=== PATIENT | male | born 1960 | race Caucasian/White ===

== ENCOUNTER 2019-09-22 16:42 | Outpatient (CLI) | payer OTHER | END 2019-09-22 16:43 | disposition critical access hospital (66) | LOC: EMS 16:42 | PROVIDERS: ATTEND Surgery | DX: R41.0 Disorientation, unspecified (principal); R53.1 Weakness; R47.81 Slurred speech; R04.0 Epistaxis; W18.30XA Fall on same level, unspecified, initial encounter; Y92.031 Bathroom in apartment as the place of occurrence of the external cause | CPT/HCPCS: A0425; A0427 ==

== ENCOUNTER 2019-09-22 16:57 | Emergency (ER) | payer BC, OTHER ==
--- NOTE | 2019-09-22 17:05 | ED Physician Documentation ---
PD HPI FOCAL NEURO - Stated complaint Stated Complaint: POSS STROKE - History obtained from History obtained from: Patient, Family (son), EMS - History of Present Illness Timing - onset: Today (58-year-old gentleman who abruptly at 4 PM became altered and listing to the left. No trauma but had a bloody nose. Reportedly was on some sort of blood thinner, we do not know what and stopped it 3 days ago for reasons unknown.) Timing - details: Abrupt onset Baseline status: positive: A&OX3, ambulatory, indep Review of Systems Ten Systems: 10 systems reviewed and negative Constitutional: denies: Fever Ears: denies: Loss of hearing, Ear pain Throat: denies: Dental pain / toothache, Sore throat Cardiac: denies: Chest pain / pressure, Palpitations Respiratory: denies: Dyspnea, Cough GI: denies: Abdominal Pain, Nausea, Vomiting PD PAST MEDICAL HISTORY - Allergies Allergies/Adverse Reactions: Allergies Allergy/AdvReac Type Severity Reaction Status Date / Time No Known Drug Allergies Allergy Verified 09/22/19 17:04 PD ED PE NORMAL - Vitals Vital signs reviewed: Yes - General General: Alert and oriented X 3, Other (He is alert and oriented but slow slurred speech, cooperative, slightly confused. Also a little bit tangential.) - HEENT HEENT: PERRL, Other (Bloodshot eyes with lateral nystagmus) - Neck Neck: Supple, no meningeal sign, No bony TTP - Cardiac Cardiac: RRR, No murmur - Respiratory Respiratory: No respiratory distress, Clear bilaterally - Abdomen Abdomen: Normal bowel sounds, Soft, Non tender - Back Back: No CVA TTP, No spinal TTP - Neuro Neuro: Alert and oriented X 3, No motor deficit, No sensory deficit, Normal speech (Slight ataxia with ucxsnw-[id number] testing bilaterally, be left worse than right.) Eye Opening: Spontaneous Motor: Obeys Commands NIHSS - Time Time: 17:01 - Level of Consciousness Level of consciousness: (0) Alert, Keenly responsive LOC Questions: (0) Answers both Q's correct LOC Commands: (0) Performs both correctly - Gaze Best Gaze: (0) Normal - Visual Visual: (0) No loss - Facial Palsy Facial Palsy: (0) Normal, symmetrical movement - Motor Arms (both separate) Motor Arm (right): (0) No drift Motor Arm (left): (0) No drift - Motor Legs (both separate) Motor Leg (right): (0) No drift Motor Leg (left): (0) No drift - Limb Ataxia Limb Ataxia: (2) Present in 2 limbs - Sensory Sensory: (0) Normal - Best Language Best Language: (0) No aphasia - Dysarthria Dysarthria: (1) Wnyu-[id number] dysarthria - Extinction and Inattention (formally neg Extinction and inattention: (0) No abnormality - Total Score/Results Total Score/Result: 3 Results - Vitals Vitals: Vital Signs - 24 hr 09/22/19 09/22/19 09/22/19 16:57 17:30 18:11 Heart Rate 79 71 74 Respiratory 20 16 15 Rate Blood Pressure 200/113 H 243/136 H 176/107 H O2 Saturation 96 95 98 09/22/19 18:30 Heart Rate 89 Respiratory 22 Rate Blood Pressure 132/119 H O2 Saturation 97 Oxygen O2 Source Room air - EKG (time done) 1726 Rate: Rate (enter#) (79) Rhythm: NSR [place]: Normal, LAD Intervals: Normal NM QRS: Normal Ischemia: Non specific changes Computer interpretation: Agree with computer - Labs Labs: Laboratory Tests 09/22/19 09/22/19 09/22/19 17:05 17:05 17:05 WBC 8.4 RBC 4.55 L Hgb 15.2 Hct 45.2 MCV 99.3 H MCH 33.4 H MCHC 33.6 RDW 12.9 Plt Count 221 MPV 9.4 Neut # (Auto) 5.3 Lymph # (Auto) 2.0 [place] # (Auto) 0.9 Eos # (Auto) 0.1 Baso # (Auto) 0.1 Absolute Nucleated RBC 0.00 Nucleated RBC % 0.0 Sodium 137 Potassium 2.9 L Chloride 98 L Carbon Dioxide 27 Anion Gap 12.0 BUN 10 Creatinine 0.9 Estimated GFR (MDRD) 87 L Glucose 108 H Calcium 8.3 L Total Bilirubin 0.8 AST 31 ALT 25 Alkaline Phosphatase 80 CK-MB (CK-2) 5.2 Total Protein 7.2 Albumin 4.0 Globulin 3.2 Albumin/Globulin Ratio 1.3 Lipase 33 Ethyl Alcohol 331.4 - Rads (name of study) CT Head/CTA Head/neck Radiology: EMP read contemporaneously (NAD) PD MEDICAL DECISION MAKING - ED course ED course: 58-year-old gentleman presents as a stroke alert with listing to the left and ataxia. Examination was more consistent with and laboratory testing proved alcohol delirium as opposed to stroke. He was allowed to sober up and his supportive family was at the bedside. He was counseled to quit drinking. Ambulatory in the department without issue. Departure - Departure Disposition: 01 Home, Self Care Clinical Impression: Stroke-like symptom, Alcohol intoxication delirium Altered mental status Qualifiers: Altered mental status type: delirium Qualified Code(s): R41.0 - Disorientation, unspecified Condition: Good Record reviewed to determine appropriate education?: Yes Instructions: ED Alcohol Intoxication Comments: Thankfully there was no evidence of you having a stroke tonight, just drunk. Please refrain from alcohol and follow-up with your primary care physician.
[2019-09-22 17:15] LABS: BASOPHILS # (AUTO) 0.1 10^3/uL (0.0-0.1); BASOPHILS % (AUTO) 0.7 %; EOSINOPHILS # (AUTO) 0.1 10^3/uL (0.0-0.7); EOSINOPHILS % (AUTO) 1.2 %; HGB - HEMOGLOBIN 15.2 g/dL (14.0-18.0); LYMPHOCYTES % (AUTO) 23.7 %; MEAN CORPUSCULAR HEMOGLOBIN 33.4 pg (27.0-31.0); MEAN CORPUSCULAR HGB CONC 33.6 g/dL (32.0-36.0); MEAN CORPUSCULAR VOLUME 99.3 fL (80.0-94.0); MEAN PLATELET VOLUME 9.4 fL (7.4-11.4); MONOCYTES # (AUTO) 0.9 10^3/uL (0.0-1.0); MONOCYTES % (AUTO) 10.4 %; NEUTROPHILS # (AUTO) 5.3 10^3/uL (1.5-6.6); NEUTROPHILS % (AUTO) 63.6 %; PLT - PLATELET COUNT 221 10^3/uL (130-450); RED BLOOD COUNT 4.55 10^6/uL (4.70-6.10); RED CELL DISTRIBUTION WIDTH 12.9 % (12.0-15.0); WHITE BLOOD COUNT 8.4 x10^3/uL (4.8-10.8)
[2019-09-22 17:25] LABS: ALBUMIN/GLOBULIN RATIO 1.3 (1.0-2.2); BILIRUBIN,TOTAL 0.8 mg/dL (0.2-1.0); CALCIUM 8.3 mg/dL (8.5-10.3); CREATININE 0.9 mg/dL (0.6-1.2); TOTAL PROTEIN 7.2 g/dL (6.7-8.2)
[2019-09-22] MEDS ORDERED: IOVERSOL 320 100 ML VIAL IVP ONE ×2 (17:30→17:34)
--- NOTE | 2019-09-22 17:33 | CT Report ---
Reason: stroke symptoms Procedure Date: 09/22/2019 Accession Number: [id number] / [id number] Procedure: CT - HEAD WO CPT Code: Final Report FULL RESULT: EXAM: CT HEAD EXAM DATE: 09/22/2019 05:15 PM. CLINICAL HISTORY: Found down, slurred speech, on blood thinners COMPARISON: None. TECHNIQUE: Multiaxial CT images were obtained from the foramen magnum to the vertex. Reformats: Sagittal and coronal. IV contrast: None. In accordance with CT protocol optimization, one or more of the following dose reduction techniques were utilized for this exam: automated exposure control, adjustment of mA and/or KV based on patient size, or use of iterative reconstructive technique. FINDINGS: Parenchyma: No intraparenchymal hemorrhage. No evidence of mass, midline shift, or CT findings of infarction. Pizarro-white differentiation is distinct. Extraaxial Spaces: Mild to moderate volume loss No subdural or epidural hemorrhage. Ventricles: Normal in size and position. Sinuses and Orbits: Imaged paranasal sinuses, orbits, and mastoids show no significant abnormality. Bones: No evidence of fracture or calvarial defect. Other: None. IMPRESSION: No acute intracranial abnormality. RADIA The call report notification system was initiated by Dr. Gustavo Grigsby at 05:28 PM on 09/22/2019. The above call report findings were discussed with Darian Mccormick by Dr. Gustavo Grigsby at 05:32 PM on 09/22/2019.
--- NOTE | 2019-09-22 18:10 | CT Report ---
Reason: stroke symptoms Procedure Date: 09/22/2019 Accession Number: [id number] / [id number] Procedure: CT - ANGIO NECK W CPT Code: Final Report FULL RESULT: EXAM: CT ANGIOGRAM NECK EXAM DATE: 09/22/2019 05:22 PM. CLINICAL HISTORY: 58-year-old male, slurred speech Stroke symptoms. COMPARISON: CT head 09/22/2019 TECHNIQUE: Routine axial helical imaging was performed from the skull base through the aortic arch. Reconstructions: Routine multiplanar 3D MIP reconstructions. IV Contrast: OPTI 320 80ML. Evaluation of arterial stenosis is based on a NASCET method of measurement. In accordance with CT protocol optimization, one or more of the following dose reduction techniques were utilized for this exam: automated exposure control, adjustment of mA and/or KV based on patient size, or use of iterative reconstructive technique. FINDINGS: Right Carotid: The common carotid, internal carotid, and external carotid arteries are widely patent. No dissection, significant atherosclerotic plaque, or calcification identified. Left Carotid: The common carotid, internal carotid, and external carotid arteries are widely patent. No dissection, significant atherosclerotic plaque, or calcification identified. Vertebrals: The right vertebral artery is dominant. The vertebrobasilar system shows no stenoses. Intracranial Circulation: CTA head is dictated separately. Other: The visualized lung apices are clear. Moderate multilevel degenerative spondylosis of the visualized spine, no acute fracture or traumatic subluxation. Polypoid mucosal thickening of the maxillary sinuses bilaterally. The remaining paranasal sinuses are clear. The visualized soft tissues of the neck demonstrate no acute abnormality. IMPRESSION: 1. Unremarkable neck CT angiogram. No hemodynamically significant stenoses. 2. Concurrently obtained CTA head dictated separately. RADIA The critical test notification system was initiated by Dr. Paulo Rutherford at 05:59 PM on 09/22/2019. The above critical test findings were discussed with Darian Mccormick by Dr. Paulo Rutherford at 06:04 PM on 09/22/2019.
--- NOTE | 2019-09-22 18:13 | CT Report ---
Reason: stroke symptoms Procedure Date: 09/22/2019 Accession Number: [id number] / [id number] Procedure: CT - ANGIO HEAD W/WO CPT Code: Final Report FULL RESULT: EXAM: CT ANGIOGRAM HEAD. CT SCAN OF THE HEAD WITH CONTRAST. EXAM DATE: 09/22/2019 05:22 PM CLINICAL HISTORY: 58-year-old male with slurred speech. Stroke symptoms. COMPARISON: Noncontrast CT head obtained concurrently TECHNIQUE: - CT Scan Head: Using a multidetector scanner, axial images were acquired from the foramen magnum to the skull vertex following contrast administration. - CT Angiogram: Using a multidetector scanner, high-resolution axial images were acquired from the skull base through vertex following rapid infusion of intravenous contrast. Reformats: Multiplanar MIP reformats were reconstructed. NASCET criteria used for stenosis measurement. IV Contrast: OPTI 320 80ML. In accordance with CT protocol optimization, one or more of the following dose reduction techniques were utilized for this exam: automated exposure control, adjustment of mA and/or KV based on patient size, or use of iterative reconstructive technique. FINDINGS: NON-CONTRAST HEAD: Noncontrast CT head dictated separately. POST-CONTRAST HEAD: No abnormal enhancement. CT ANGIOGRAM HEAD: RIGHT: Internal Carotid artery: No evidence of dissection. No evidence of aneurysm along the intracranial ICA. Anterior Cerebral Artery: Patent without significant stenosis, aneurysm, or vascular malformation. Middle Cerebral Artery: Patent without significant stenosis, aneurysm, or vascular malformation. Posterior Cerebral Artery: origin. Patent without significant stenosis, aneurysm, or vascular malformation. Posterior Communicating Artery: Patent. No aneurysm. Vertebral Artery: Patent without significant stenosis. No evidence of dissection. LEFT: Internal Carotid artery: No evidence of dissection. No evidence of aneurysm along the intracranial ICA. Anterior Cerebral Artery: Patent without significant stenosis, aneurysm, or vascular malformation. Middle Cerebral Artery: Patent without significant stenosis, aneurysm, or vascular malformation. Posterior Cerebral Artery: Focal approximately 30% narrowing mid P2 segment left RHINOLOGIST. Posterior Communicating Artery: Patent. No aneurysm. Vertebral Artery: Patent without significant stenosis. No evidence of dissection. CENTRAL: Anterior Communicating Artery: Patent. No aneurysm. Basilar Artery: Patent without significant stenosis. No aneurysm. DURAL VENOUS SINUSES AND MAJOR CENTRAL VEINS: Patent. IMPRESSION: CT HEAD: 1. Noncontrast CT head dictated separately. 2. No abnormal enhancement on the postcontrast CT head. CTA HEAD: 1. No CTA evidence of high-grade stenosis, large vessel occlusion, acute dissection, aneurysm, or vascular malformation within intracranial arteries. 2. Focal approximately 30% narrowing mid P2 segment left RHINOLOGIST. RADIA The critical test notification system was initiated by Dr. Paulo Rutherford at 05:59 PM on 09/22/2019. The above critical test findings were discussed with Darian Mccormick by Dr. Paluo Rutherford at 06:04 PM on 09/22/2019.
[2019-09-22 18:38] VITALS: BP 132/119
== END 2019-09-22 19:20 | disposition home or self-care (01) ==
LOC: EDUNIT# → ED 16:57
DX: R27.0 Ataxia, unspecified (principal); R41.0 Disorientation, unspecified; F10.121 Alcohol abuse with intoxication delirium
CPT/HCPCS: 36415; 70496; 70498; 80053; 80320; 82553; 83690; 85025; 93005; 99284; Q9967; 70450

== ENCOUNTER 2021-04-18 11:01 | Outpatient (CLI) | payer SELFPAY ==
--- NOTE | 2021-04-18 12:34 | XRAY Report ---
PROCEDURE: Wrist 3 View RT INDICATIONS: Fall on outstretched hand TECHNIQUE: 3 views of the wrist were acquired. COMPARISON: None FINDINGS: Bones: No fractures or dislocations. No suspicious bony lesions. Soft tissues: Soft tissue swelling without radiopaque foreign body. IMPRESSION: Soft tissue swelling without fracture or foreign body Reviewed by: Glenn Conway MD on 04/18/2021 11:33 AM AKZOLTAN Approved by: Glenn Conway MD on 04/18/2021 11:33 AM AKDT Station ID: [id number]
== END 2021-04-18 23:59 | disposition home or self-care (01) ==
LOC: DI.N 11:01
PROVIDERS: ATTEND Physician Assistant Medical
DX: S62.91XA Unspecified fracture of right hand, initial encounter for closed fracture (principal); M79.89 Other specified soft tissue disorders

== ENCOUNTER 2021-04-20 09:58 | Outpatient (CLI) | payer SELFPAY ==
--- NOTE | 2021-04-20 16:53 | XRAY Report ---
PROCEDURE: Wrist 4 View RT INDICATIONS: R WRIST PX TECHNIQUE: 4 views of the wrist were acquired. COMPARISON: 04/18/2021. FINDINGS: Bones: Lucency noted in the distal radius concerning for nondisplaced fracture. Fracture lucency appe ars to extend into the radiocarpal joint. Scaphoid view: Scaphoid is intact. Soft tissues: No suspicious soft tissue calcifications. IMPRESSION: Possible nondisplaced, intra-articular distal radius fracture. Reviewed by: Ligia Boyer MD, PhD on 04/20/2021 4:51 PM PDT Approved by: Ligia Boyer MD, PhD on 04/20/2021 4:51 PM PDT Station ID: [id number]
== END 2021-04-20 23:59 | disposition home or self-care (01) ==
LOC: DI.N 09:58
PROVIDERS: ATTEND Family Medicine
DX: S62.91XA Unspecified fracture of right hand, initial encounter for closed fracture (principal); R93.6 Abnormal findings on diagnostic imaging of limbs

== ENCOUNTER 2021-05-12 08:15 | Outpatient (CLI) | payer SELFPAY ==
--- NOTE | 2021-05-12 08:40 | XRAY Report ---
PROCEDURE: Wrist 3 View RT INDICATIONS: FX OF DISTAL R RADIUS TECHNIQUE: 3 views of the wrist were acquired. COMPARISON: 04/20/2021 and 04/18/2021 FINDINGS: Bones: Right wrist is placed in a cast which obscures bony details. There is interval healing at dist al radial intra-articular fracture site with subtle increased sclerosis. No new fracture or dislocati on is seen. Wrist alignment is anatomic. Soft tissues: No suspicious soft tissue calcifications. IMPRESSION: Interval healing of distal radial intra-articular fracture site with stable anatomic wrist alignment. No new fracture or dislocation. Reviewed by: Reddy Garcia MD on 05/12/2021 8:38 AM PDT Approved by: Reddy Garcia MD on 05/12/2021 8:38 AM PDT Station ID: [id number]
== END 2021-05-12 23:59 | disposition home or self-care (01) ==
LOC: DI.N 08:15
PROVIDERS: ATTEND Physician Assistant
DX: S52.571D Other intraarticular fracture of lower end of right radius, subsequent encounter for closed fracture with routine healing (principal)

== ENCOUNTER 2021-06-02 15:35 | Outpatient (CLI) | payer SELFPAY ==
--- NOTE | 2021-06-02 16:23 | XRAY Report ---
PROCEDURE: Wrist 3 View RT INDICATIONS: OTHER FX OF LOWER END OF RIGHT RADIUS TECHNIQUE: 3 views of the wrist were acquired. COMPARISON: X-ray wrist 05/12/2021, 04/18/2021 FINDINGS: Bones: Overlying cast material obscures fine detail evaluation. There is continued interval healing of distal radial fracture with stable alignment. No suspicious bony lesions. Soft tissues: No suspicious soft tissue calcifications. IMPRESSION: Stable alignment of distal radial fracture. Reviewed by: Alpa Taylor MD on 06/02/2021 4:22 PM PDT Approved by: Alpa Taylor MD on 06/02/2021 4:22 PM PDT Station ID: [id number]
== END 2021-06-02 15:36 | disposition home or self-care (01) ==
LOC: DI.N 15:35
PROVIDERS: ATTEND Physician Assistant
DX: S52.591D Other fractures of lower end of right radius, subsequent encounter for closed fracture with routine healing (principal)

== ENCOUNTER 2021-06-13 14:00 | Outpatient (CLI) | payer OTHER ==
--- NOTE | 2021-06-13 16:39 | XRAY Report ---
PROCEDURE: Wrist 3 View RT INDICATIONS: FRACTURE OF LOWER END OF RIGHT RADIUS TECHNIQUE: 3 views of the wrist were acquired. COMPARISON: 06/02/2021 FINDINGS: Bones: Linear sclerosis through the distal radial metaphysis reflects healing fracture. Generalized d ecreased osseous mineralization present. No lytic or blastic lesion. Scaphoid view: Not obtained Soft tissues: No suspicious soft tissue calcifications. IMPRESSION: Healing distal radial fracture Reviewed by: Glenn Conway MD on 06/13/2021 3:38 PM KWADWO Approved by: Glenn Conway MD on 06/13/2021 3:38 PM AKZOLTAN Station ID: [id number]
== END 2021-06-13 14:01 ==
LOC: DI.N 14:00
PROVIDERS: ATTEND Physician Assistant
DX: S52.591D Other fractures of lower end of right radius, subsequent encounter for closed fracture with routine healing (principal)

== ENCOUNTER 2021-07-12 08:00 | Outpatient (CLI) | payer OTHER | END 2021-07-12 23:59 | LOC: LAB.N 08:00 | PROVIDERS: ATTEND Family Medicine | DX: R07.0 Pain in throat (principal); Z20.822 Contact with and (suspected) exposure to COVID-19 | CPT/HCPCS: 87070 ==

== ENCOUNTER 2021-08-12 08:12 | Outpatient (CLI) | payer OTHER | END 2021-08-12 23:59 | disposition home or self-care (01) | LOC: LAB.N 08:12 | PROVIDERS: ATTEND Family Medicine | DX: K30 Functional dyspepsia (principal); Z20.822 Contact with and (suspected) exposure to COVID-19 | CPT/HCPCS: 87275; 87276 ==

== ENCOUNTER 2023-02-11 10:23 | Outpatient (CLI) | payer OTHER | END 2023-02-11 23:59 | disposition critical access hospital (66) | LOC: EMS 10:23 | DX: S00.03XA Contusion of scalp, initial encounter (principal); S40.812A Abrasion of left upper arm, initial encounter; S80.02XA Contusion of left knee, initial encounter; W18.30XA Fall on same level, unspecified, initial encounter; Y92.009 Unspecified place in unspecified non-institutional (private) residence as the place of occurrence of the external cause; R29.6 Repeated falls; F10.10 Alcohol abuse, uncomplicated | CPT/HCPCS: A0425; A0429 ==

== ENCOUNTER 2023-02-11 10:45 | Emergency (ER) | payer OTHER ==
--- NOTE | 2023-02-11 11:48 | ED Physician Documentation ---
History of Present Illness - Stated complaint Stated Complaint: ETOH/GLF - Chief complaint Chief Complaint: General - History obtained from History obtained from: Patient, Family, EMS - History of Present Illness Timing: Today Pain level max: 0 Pain level now: 0 - Additonal information Additional information: Patient is a 62-year-old male who presents to the emergency department after drinking several "small" bottles of wine today. He fell outside on the pavement and his family was unable to pick him up. He had a hematoma to the forehead. He does not take any blood thinners but is on blood pressure medication. Patient denies any pain. No vomiting. Patient states he usually drinks 4-5 small bottles of wine per day. Denies any abdominal pain, vomiting, diarrhea. No blood in the stool. No loss of consciousness that his family is aware of. No seizure activity. Nothing makes it better or worse. Review of Systems Constitutional: denies: Fever, Chills Ears: denies: Ear pain Nose: denies: Rhinorrhea / runny nose, Congestion Throat: denies: Sore throat Cardiac: denies: Palpitations Respiratory: denies: Dyspnea, Cough GI: denies: Abdominal Pain, Nausea, Vomiting, Diarrhea, Hematemesis, Bloody / black stool : denies: Dysuria, Frequency, Hesitancy Skin: denies: Rash Musculoskeletal: denies: Neck pain, Back pain Neurologic: denies: Headache PD PAST MEDICAL HISTORY - Past Medical History Past Medical History: Yes Cardiovascular: Hypertension - Allergies Allergies/Adverse Reactions: Allergies Allergy/AdvReac Type Severity Reaction Status Date / Time No Known Drug Allergies Allergy Verified 02/11/23 11:03 - Living Situation Living Situation: reports: With family Living Arrangement: reports: At home - Social History Does the pt drink ETOH?: Yes ETOH Use: Wine - Family History Family history: reports: Non contributory PD ED PE NORMAL - Vitals Vital signs reviewed: Yes - General General: Alert and oriented X 3, No acute distress, Well developed/nourished, Other (Intoxicated) - HEENT HEENT: PERRL, Other (Lio nose, slurred speech) - Neck Neck: Supple, no meningeal sign - Cardiac Cardiac: RRR, Strong equal pulses - Respiratory Respiratory: No respiratory distress, Clear bilaterally - Abdomen Abdomen: Soft, Non tender, Non distended - Derm Derm: Warm and dry - Extremities Extremities: No edema, No calf tenderness / cord - Neuro Neuro: Alert and oriented X 3 - Psych Psych: Normal mood, Normal affect Results - Vitals Vitals: Vital Signs - 24 hr 02/11/23 02/11/23 10:56 13:03 Temperature 37.1 C Heart Rate 72 80 Respiratory 16 18 Rate Blood Pressure 185/94 H 151/84 H O2 Saturation 98 98 Oxygen O2 Source Room air - Labs Labs: Laboratory Tests 02/11/23 02/11/23 02/11/23 11:47 11:47 11:47 WBC 11.6 H RBC 4.64 L Hgb 15.4 Hct 46.4 MCV 100.0 H MCH 33.2 H MCHC 33.2 RDW 13.1 Plt Count 240 MPV 9.6 Neut # (Auto) 8.5 H Lymph # (Auto) 2.1 [place] # (Auto) 0.9 Eos # (Auto) 0.0 Baso # (Auto) 0.1 Absolute Nucleated RBC 0.00 Nucleated RBC % 0.0 PT INR APTT Sodium 143 Potassium 4.0 Chloride 108 Carbon Dioxide 28 Anion Gap 7.0 BUN 8 Creatinine 0.7 Estimated GFR (MDRD) 115 Glucose 114 H Calcium 8.4 L Magnesium 1.8 Total Bilirubin 0.3 AST 32 ALT 25 Alkaline Phosphatase 90 Total Creatine Kinase 148 Total Protein 7.4 Albumin 3.8 Globulin 3.6 Albumin/Globulin Ratio 1.1 Lipase 32 TSH 0.90 Urine Color Urine Clarity Urine pH Ur Specific [place] Urine Protein Urine Glucose (UA) Urine Ketones Urine Occult Blood Urine Nitrite Urine Bilirubin Urine Urobilinogen Ur Leukocyte Esterase Ur Microscopic Review Urine Culture Comments Salicylates < 6.0 Urine Opiates Screen Ur Oxycodone Screen Urine Methadone Screen Ur Propoxyphene Screen Acetaminophen < 10 L Ur Barbiturates Screen Ur Tricyclics Screen Ur Phencyclidine Scrn Ur Amphetamine Screen U Methamphetamines Scrn U Benzodiazepines Scrn Urine Cocaine Screen U Cannabinoids Screen Ethyl Alcohol 367.6 02/11/23 02/11/23 11:47 11:47 WBC RBC Hgb Hct MCV MCH MCHC RDW Plt Count MPV Neut # (Auto) Lymph # (Auto) [place] # (Auto) Eos # (Auto) Baso # (Auto) Absolute Nucleated RBC Nucleated RBC % PT 10.7 INR 0.9 APTT 27.5 Sodium Potassium Chloride Carbon Dioxide Anion Gap BUN Creatinine Estimated GFR (MDRD) Glucose Calcium Magnesium Total Bilirubin AST ALT Alkaline Phosphatase Total Creatine Kinase Total Protein Albumin Globulin Albumin/Globulin Ratio Lipase TSH Urine Color YELLOW Urine Clarity CLEAR Urine pH 5.5 Ur Specific [place] <=1.005 Urine Protein NEGATIVE Urine Glucose (UA) NEGATIVE Urine Ketones NEGATIVE Urine Occult Blood NEGATIVE Urine Nitrite NEGATIVE Urine Bilirubin NEGATIVE Urine Urobilinogen 0.2 (NORMAL) Ur Leukocyte Esterase NEGATIVE Ur Microscopic Review NOT INDICATED Urine Culture Comments NOT INDICATED Salicylates Urine Opiates Screen NEGATIVE Ur Oxycodone Screen NEGATIVE Urine Methadone Screen NEGATIVE Ur Propoxyphene Screen NEGATIVE Acetaminophen Ur Barbiturates Screen NEGATIVE Ur Tricyclics Screen NEGATIVE Ur Phencyclidine Scrn NEGATIVE Ur Amphetamine Screen NEGATIVE U Methamphetamines Scrn NEGATIVE U Benzodiazepines Scrn NEGATIVE Urine Cocaine Screen NEGATIVE U Cannabinoids Screen NEGATIVE Ethyl Alcohol PD Medical Decision Making - ED course Complexity details: reviewed results, re-evaluated patient, considered differential, d/w patient, d/w family, d/w building energy consultant ED course: Patient adamantly refuses a cervical collar. He rips the cervical collar off whenever applied. Patient with a subarachnoid hemorrhage on CT scan. No acute findings on cervical spine CT. Discussed the case with the TACS surgeon at [facility] in [place] who recommends transfer to the emergency department. I spoke with Dr. Satnam Alves, Emergency Department physician who graciously accepts in transfer. Patient was given a dose of Haldol here for agitation. Patient will be transferred for further care. He is not on blood thinners. Patient is a GCS 14 secondary to alcohol intoxication. Otherwise he is neurologically intact. COBRA forms completed Patient was given Haldol IV for acute agitation This document was made in part using voice recognition software. While efforts are made to proofread this document, sound alike and grammatical errors may occur. PROCEDURE: CT brain without contrast INDICATIONS: fall, head/neck pain, +etoh TECHNIQUE: Noncontrast 4.5 mm thick angled axial sections acquired from the foramen magnum to the vertex. For radiation dose reduction, the following was used: automated exposure control, adjustment of mA and/or kV according to patient size. COMPARISON: None. FINDINGS: Image quality: Excellent. CSF spaces: Basal cisterns are patent. No extra-axial fluid collections. Ventricles are normal in size and shape. Brain: No midline shift. Subarachnoid hemorrhage is noted in the right sylvian cistern posteriorly. No evidence of parenchymal hemorrhage Pizarro-white matter interface is normal. Skull and face: Calvarium and visualized facial bones are intact, without suspicious lesions. Sinuses: Visualized sinuses and mastoids are clear. IMPRESSION: 1. Small volume subarachnoid hemorrhage noted in the right sylvian cistern. No evidence of parenchymal hemorrhage or mass effect PROCEDURE: CT cervical spine without contrast INDICATIONS: fall, head/neck pain, +etoh TECHNIQUE: Noncontrast 3 mm thick sections acquired from the skull base to the T4 level. Sagittal and coronal reformats were then constructed. For radiation dose reduction, the following was used: automated exposure control, adjustment of mA and/or kV according to patient size. COMPARISON: None. FINDINGS: Image quality: Excellent. Bones: No fractures or dislocations. Visualized superior ribs are intact. Multilevel degenerative disc disease and arthropathy in the cervical spine. Moderate central stenosis C5-6 and C6-7 Soft tissues: Prevertebral soft tissues are normal in thickness. No paravertebral hematomas. No apical pneumothoraces. IMPRESSION: 1. Degenerative disc disease and arthropathy associated with moderate central stenosis at C5-6 and C6-7. 2. No acute fracture or malalignment. Departure - Departure Disposition: 02 Transfer Acute Care Hosp Clinical Impression: Subarachnoid hemorrhage following injury Qualifiers: Encounter type: initial encounter Loss of consciousness presence/duration: without LOC Qualified Code(s): S06.6X0A - Traumatic subarachnoid hemorrhage without loss of consciousness, initial encounter Alcohol intoxication Qualifiers: Complication of substance-induced condition: uncomplicated Qualified Code(s): F10.920 - Alcohol use, unspecified with intoxication, uncomplicated Condition: Stable
[2023-02-11 11:54] LABS: MUDS CUTOFF CONCENTRATIONS CUTOFF CONC BELOW:
[2023-02-11 11:57] LABS: BILIRUBIN,URINE NEGATIVE (NEGATIVE); GLUCOSE, URINE (UA) NEGATIVE (NEGATIVE); KETONES,URINE (UA) NEGATIVE (NEGATIVE); LEUKOCYTE ESTERASE, URINE NEGATIVE (NEGATIVE); NITRITE,URINE NEGATIVE (NEGATIVE); OCCULT BLOOD,URINE NEGATIVE (NEGATIVE); PH,URINE 5.5 PH (5.0-7.5); PROTEIN,URINE NEGATIVE (NEGATIVE); UROBILINOGEN,URINE 0.2 (NORMAL) E.U./dL (NORMAL)
[2023-02-11 11:59] LABS: BASOPHILS # (AUTO) 0.1 10^3/uL (0.0-0.1); BASOPHILS % (AUTO) 0.6 %; CLARITY,URINE CLEAR (CLEAR); EOSINOPHILS % (AUTO) 0.3 %; HCT - HEMATOCRIT 46.4 % (42.0-52.0); HGB - HEMOGLOBIN 15.4 g/dL (14.0-18.0); LYMPHOCYTES # (AUTO) 2.1 10^3/uL (1.5-3.5); LYMPHOCYTES % (AUTO) 17.8 %; MEAN CORPUSCULAR HEMOGLOBIN 33.2 pg (27.0-31.0); MEAN CORPUSCULAR HGB CONC 33.2 g/dL (32.0-36.0); MEAN PLATELET VOLUME 9.6 fL (7.4-11.4); MONOCYTES # (AUTO) 0.9 10^3/uL (0.0-1.0); MONOCYTES % (AUTO) 7.5 %; NEUTROPHILS # (AUTO) 8.5 10^3/uL (1.5-6.6); NEUTROPHILS % (AUTO) 73.5 %; PLT - PLATELET COUNT 240 10^3/uL (130-450); RED BLOOD COUNT 4.64 10^6/uL (4.70-6.10); RED CELL DISTRIBUTION WIDTH 13.1 % (12.0-15.0); WHITE BLOOD COUNT 11.6 x10^3/uL (4.8-10.8)
[2023-02-11 12:03] LABS: INR 0.9 (0.8-1.2); PT - PROTHROMBIN TIME 10.7 secs (9.9-12.6)
[2023-02-11 12:09] LABS: AMPHETAMINE SCREEN,URINE NEGATIVE (NEGATIVE); BARBITURATE SCREEN,UR NEGATIVE (NEGATIVE); BENZODIAZEPINES SCREEN, URINE NEGATIVE (NEGATIVE); COCAINE SCREEN URINE NEGATIVE (NEGATIVE); METHADONE SCREEN, URINE NEGATIVE (NEGATIVE); METHAMPHETAMINES SCREEN, URINE NEGATIVE (NEGATIVE); OPIATE SCREEN, URINE NEGATIVE (NEGATIVE); OXYCODONE SCREEN, URINE NEGATIVE (NEGATIVE); PROPOXYPHENE SCREEN, URINE NEGATIVE (NEGATIVE); THC CANNABINOID SCREEN, URINE NEGATIVE (NEGATIVE); TRICYCLIC ANTIDEPRESSANT,URINE NEGATIVE (NEGATIVE)
[2023-02-11 12:10] LABS: PARTIAL THROMBOPLASTIN TIME 27.5 secs (24.9-33.3)
[2023-02-11 12:15] LABS: ACETAMINOPHEN < 10 ug/mL (10-30); ALBUMIN 3.8 g/dL (3.2-5.5); ALBUMIN/GLOBULIN RATIO 1.1 (1.0-2.2); ALKALINE PHOSPHATASE 90 IU/L (42-121); ALT ALANINE AMINOTRANSFERASE 25 IU/L (10-60); AST ASPARTATE AMINOTRANSFERASE 32 IU/L (10-42); BILIRUBIN,TOTAL 0.3 mg/dL (0.2-1.0); BUN - BLOOD UREA NITROGEN 8 mg/dL (6-20); CALCIUM 8.4 mg/dL (8.5-10.3); CARBON DIOXIDE - CO2 28 mmol/L (21-32); CHLORIDE 108 mmol/L (101-111); CK- CREATINE KINASE 148 IU/L (22-269); CREATININE 0.7 mg/dL (0.6-1.2); ETOH - ETHANOL 367.6 mg/dL; GFR - MDRD 115 (>89); GLUCOSE 114 mg/dL (70-100); LIPASE 32 U/L (22-51); MAGNESIUM 1.8 mg/dL (1.7-2.8); SALICYLATE < 6.0 mg/dL; SODIUM 143 mmol/L (135-145); TOTAL PROTEIN 7.4 g/dL (6.7-8.2)
--- NOTE | 2023-02-11 12:23 | CT Report ---
PROCEDURE: CT cervical spine without contrast INDICATIONS: fall, head/neck pain, +etoh TECHNIQUE: Noncontrast 3 mm thick sections acquired from the skull base to the T4 level. Sagittal and coronal r eformats were then constructed. For radiation dose reduction, the following was used: automated exp osure control, adjustment of mA and/or kV according to patient size. COMPARISON: None. FINDINGS: Image quality: Excellent. Bones: No fractures or dislocations. Visualized superior ribs are intact. Multilevel degenerative disc disease and arthropathy in the cervical spine. Moderate central stenosis C5-6 and C6-7 Soft tissues: Prevertebral soft tissues are normal in thickness. No paravertebral hematomas. No ap ical pneumothoraces. IMPRESSION: 1. Degenerative disc disease and arthropathy associated with moderate central stenosis at C5-6 and C6 -7. 2. No acute fracture or malalignment. Reviewed by: Glenn Conway MD on 02/11/2023 11:21 AM [facility]ADWO Approved by: Glenn Conway MD on 02/11/2023 11:21 AM KWADWO Station ID: [id number]
[2023-02-11] MEDS ORDERED: HALOPERIDOL 5 MG/ML VIAL IVP STA ×2 (12:28→13:05)
--- NOTE | 2023-02-11 12:33 | CT Report ---
PROCEDURE: CT brain without contrast INDICATIONS: fall, head/neck pain, +etoh TECHNIQUE: Noncontrast 4.5 mm thick angled axial sections acquired from the foramen magnum to the vertex. For r adiation dose reduction, the following was used: automated exposure control, adjustment of mA and/or kV according to patient size. COMPARISON: None. FINDINGS: Image quality: Excellent. CSF spaces: Basal cisterns are patent. No extra-axial fluid collections. Ventricles are normal in size and shape. Brain: No midline shift. Subarachnoid hemorrhage is noted in the right sylvian cistern posteriorly. No evidence of parenchymal hemorrhage Pizarro-white matter interface is normal. Skull and face: Calvarium and visualized facial bones are intact, without suspicious lesions. Sinuses: Visualized sinuses and mastoids are clear. IMPRESSION: 1. Small volume subarachnoid hemorrhage noted in the right sylvian cistern. No evidence of parenchyma l hemorrhage or mass effect Note: Critical results were discussed with Dr. Ogden at 11:30 AM [place] time on 02/11/2023 Reviewed by: Glenn Conway MD on 02/11/2023 11:31 AM AKDT Approved by: Glenn Conway MD on 02/11/2023 11:31 AM AKDT Station ID: [id number]
[2023-02-11 13:15] VITALS: BP 151/84
== END 2023-02-11 13:30 | disposition short-term general hospital (02) ==
LOC: ED 10:45
DX: S06.6X0A Traumatic subarachnoid hemorrhage without loss of consciousness, initial encounter (principal); W18.30XA Fall on same level, unspecified, initial encounter; F10.920 Alcohol use, unspecified with intoxication, uncomplicated; I10 Essential (primary) hypertension
CPT/HCPCS: 36415; 80053; 80306; 80307; 80320; 80329; 81001; 81003; 82550; 83690; 83735; 84443; 85025; 85610; 85730; 87086; 96374; 96376; 99285

== ENCOUNTER 2023-02-11 13:31 | Outpatient (CLI) | payer OTHER | END 2023-02-11 23:59 | disposition short-term general hospital (02) | LOC: EMS 13:31 | PROVIDERS: ATTEND Emergency Medicine | DX: S06.6XAA Traumatic subarachnoid hemorrhage with loss of consciousness status unknown, initial encounter (principal); W19.XXXA Unspecified fall, initial encounter; Y92.009 Unspecified place in unspecified non-institutional (private) residence as the place of occurrence of the external cause; F10.129 Alcohol abuse with intoxication, unspecified; Y90.8 Blood alcohol level of 240 mg/100 ml or more; R45.1 Restlessness and agitation | CPT/HCPCS: A0425; A0428 ==